=== PATIENT | female | born 1990 | race Caucasian/White ===

== ENCOUNTER 2017-03-11 18:10 | Emergency (ER) | payer MEDICAID ==
[2017-03-11 18:20] VITALS: BP 103/73
== END 2017-03-11 19:22 | disposition left against medical advice (07) ==
LOC: ED 18:10
DX: Z53.21 Procedure and treatment not carried out due to patient leaving prior to being seen by health care provider (principal)

== ENCOUNTER 2017-03-11 19:59 | Emergency (ER) | payer MEDICAID | END 2017-03-11 21:28 | disposition home or self-care (01) | LOC: ED 19:59 | DX: K04.7 Periapical abscess without sinus (principal) | CPT/HCPCS: J0696; J1885; J2001 ==